=== PATIENT | male | born 1970 | race Native Hawaiian/Other Pacific Islander ===

== ENCOUNTER 2016-04-05 05:28 | Outpatient (CLI) | payer OTHER ==
[~2016-04-05 05:28] MED LIST: METHADONE10 MG/ML PO; SINGULAIR10 MG PO
[2016-04-05] MEDS ORDERED: CYCL10TA35 PO (08:04)
[2016-04-05] MEDS ORDERED: TRAM50TA PO (08:04)
== END 2016-04-05 05:32 | disposition short-term general hospital (02) ==
LOC: AMB 05:28
DX: M54.89 Other dorsalgia (principal); M54.2 Cervicalgia; V49.59XA Passenger injured in collision with other motor vehicles in traffic accident, initial encounter; Y92.488 Other paved roadways as the place of occurrence of the external cause
CPT/HCPCS: A0425; A0429

== ENCOUNTER 2016-04-05 05:40 | Emergency (ER) | payer OTHER ==
[~2016-04-05] VITALS: Ht 190.5 cm; Wt 99.8 kg
[2016-04-05 05:45] VITALS: TEMP 98.4
[2016-04-05 08:01] VITALS: BP 153/99
[2016-04-05] MEDS ORDERED: CYCL10TA35 PO (08:04)
[2016-04-05] MEDS ORDERED: TRAM50TA PO (08:04)
== END 2016-04-05 08:01 | disposition home or self-care (01) ==
LOC: ED 05:40
DX: S16.1XXA Strain of muscle, fascia and tendon at neck level, initial encounter (principal); S39.012A Strain of muscle, fascia and tendon of lower back, initial encounter; V43.62XA Car passenger injured in collision with other type car in traffic accident, initial encounter
CPT/HCPCS: 96372; 99283; J1885

== ENCOUNTER 2016-06-21 12:10 | Emergency (ER) | payer OTHER ==
[~2016-06-21] VITALS: Ht 190.5 cm; Wt 99.8 kg
[~2016-06-21 12:10] MED LIST changes: +CYCL10TA35 PO; +TRAM50TA PO
[2016-06-21] MEDS ORDERED: DOLOPHINE10 MG OR (12:35)
[2016-06-21] MEDS ORDERED: FENT100D TD (12:36)
[2016-06-21 14:16] LABS: PLATELET COUNT 539 K/uL (142-355)
[2016-06-21 14:34] LABS: POTASSIUM 4.1 mmol/L (3.6-5.2)
[2016-06-22 13:50] VITALS: BP 155/74; TEMP 98.5
== END 2016-06-22 13:50 ==
LOC: ED 12:10
PROVIDERS: Emergency Medicine
DX: R44.1 Visual hallucinations (principal)
CPT/HCPCS: 36415; 80053; 80307; 80320; 80329; 81000; 85027; 87040; 99285; G0479; J0696; J2060; J2405